=== PATIENT | male | born 2000 | race Caucasian/White ===

== ENCOUNTER 2022-06-11 15:36 | Inpatient (IN) | payer BC ==
[~2022-06-11] VITALS: Ht 180.3 cm; Wt 68.0 kg
[2022-06-11] MEDS ORDERED: PROP20TA7 PO (16:20)
[2022-06-11] MEDS ORDERED: BUSP15TA3 PO (16:20)
[2022-06-11] MEDS ORDERED: LORA2TAB95 PO (16:20)
[2022-06-11] MEDS ORDERED: GABA300C PO (16:20)
[2022-06-11] MEDS ORDERED: LORA-259 PO (16:20)
[2022-06-11] MEDS ORDERED: BUPR8TAB4 SL (16:20)
--- NOTE | 2022-06-11 16:20 | NUR ---
Dr Hagen at the bedside for MSE.
[2022-06-11] MEDS ORDERED: IV NORMAL SALINE 1000 ML BAG IV ONE (16:30)
[2022-06-11 16:53] LABS: HEMATOCRIT 37.6 % (36.7-47.1); MEAN CORPUSCULAR HEMOGLOBIN 30.6 uug (23.8-33.4); MEAN CORPUSCULAR VOLUME 91.7 fL (73.0-96.2); PLATELET COUNT (AUTO) 233 K/uL (152-348)
[2022-06-11 17:07] LABS: CARBON DIOXIDE 28 mmol/L (21-32); CHLORIDE 101 mmol/L (98-107); CREATININE 0.9 mg/dL (0.6-1.3); GLUCOSE 104 mg/dL (74-106); POTASSIUM 4.5 mmol/L (3.5-5.1); UREA NITROGEN, BLOOD 19 mg/dL (7-18)
[2022-06-11 17:16] LABS: ALANINE AMINOTRANSFERASE 102 U/L (16-63); ALKALINE PHOSPHATASE 72 U/L (50-136); ASPARTATE AMINOTRANSFERASE 39 U/L (15-37); BILIRUBIN,DIRECT 0.1 mg/dL (0.0-0.2); BILIRUBIN,TOTAL 0.3 mg/dL (0.2-1.0); TOTAL PROTEIN, SERUM 7.4 g/dL (6.4-8.2)
--- NOTE | 2022-06-11 17:47 | NUR ---
Patient is resting comfortably in bed with eyes closed, NAD noted.
--- NOTE | 2022-06-11 18:06 | NUR ---
Dinner tray provided, pt ate 100%. Denies chest pain, SOB. Pt states he doesn't feel the palpitaions any more.
[2022-06-11] MEDS ORDERED: IV NS 1000 ML 1,000 ML IV ONE (19:00)
--- NOTE | 2022-06-11 19:04 | NUR ---
IV removed. Catheter intact and site benign. Pressure and 4x4 gauze applied to site. No bleeding noted.
[2022-06-11] MEDS ORDERED: LORAZEPAM 0.5 MG TABLET PO ONE (19:30)
[2022-06-11] MEDS ORDERED: BUPRENORPHINE HCL 2 MG TAB.SUBL SL ONE ×2 (19:30→19:44)
[2022-06-11] MEDS ORDERED: LORAZEPAM 0.5 MG TABLET ONE (19:37)
[2022-06-11 19:50] LABS: *BILIRUBIN,URIN NEGATIVE (NEGATIVE); *BLOOD, URINE NEGATIVE (NEGATIVE); *CLARITY,URINE CLEAR (CLEAR); *COLOR,URINE YELLOW (YELLOW); *KETONES,URINE NEGATIVE (NEGATIVE); *UROBILINOGEN,URINE 0.2 E.U./dl (NORMAL); LEUKOCYTE ESTERASE ,URINE NEGATIVE (NEGATIVE); NITRITE, URINE NEGATIVE (NEGATIVE); PH,URINE 5.5 (5.0-8.0); UGLUCOSE NEGATIVE (NEGATIVE)
[2022-06-11 19:57] LABS: *AMPHETAMINE, URINE NEGATIVE (NEGATIVE); *CANNABINOID, URINE POSITIVE (NEGATIVE); *COCCAINE, URINE NEGATIVE (NEGATIVE); *OPIATE, URINE NEGATIVE (NEGATIVE); *PHENCYCLIDINE SCREEN,URINE NEGATIVE (NEGATIVE)
[2022-06-11] MEDS ORDERED: MAGNESIUM HYDROXIDE 30 ML LIQUID UDC PO PRN (23:15)
[2022-06-11] MEDS ORDERED: ACETAMINOPHEN 325 MG TABLET PO PRN (23:15)
[2022-06-11] MEDS ORDERED: ONDANSETRON 4 MG/2 ML VIAL IV PRN (23:15)
--- NOTE | 2022-06-11 23:50 | NUR ---
Endorsed to LORRIE Turcios to RM 321 MS. Pt. in bed with sitter at this time. covid negative results noted.
--- NOTE | 2022-06-12 00:30 | NUR ---
Received patient from ER via gurney, awake alert and oriented x 4, not in resp distress. Sinus tachy on tele HR 137bpm. Admission care rendered, plan of care initiated. Oriented to room, TV, BR and call light. Admitted with private sitter. Call light within easy reach.
[2022-06-12 00:40] VITALS: BP 105/45
[2022-06-12] MEDS: IV NS 1000 ML 1,000 ML IV PRN (01:32)
[2022-06-12] MEDS: LORAZEPAM 0.5 MG TABLET PO PRN ×2 (01:51→23:37)
[2022-06-12 04:00] VITALS: BP 107/36
[2022-06-12] MEDS: PANTOPRAZOLE SODIUM 40 MG TABLET.DR PO SCH (06:06)
[2022-06-12 06:45] LABS: HEMATOCRIT 37.6 % (36.7-47.1); MEAN CORPUSCULAR HEMOGLOBIN 30.5 uug (23.8-33.4); MEAN CORPUSCULAR VOLUME 91.6 fL (73.0-96.2); PLATELET COUNT (AUTO) 226 K/uL (152-348)
[2022-06-12 07:06] LABS: CREATININE 0.8 mg/dL (0.6-1.3); MAGNESIUM 2.1 mg/dL (1.8-2.4); PHOSPHOROUS 5.7 mg/dL (2.5-4.9); POTASSIUM 4.7 mmol/L (3.5-5.1)
[2022-06-12] MEDS ORDERED: BUSPIRONE HCL PO SCH (09:00)
[2022-06-12] MEDS: LORAZEPAM 1 MG TABLET PO SCH (09:00)
[2022-06-12] MEDS: DILTIAZEM HCL CD 120 MG CAP.SR.24H PO SCH (09:00)
[2022-06-12] MEDS: BUPRENORPHINE HCL 2 MG TAB.SUBL SL SCH ×2 (09:00→16:50)
[2022-06-12] MEDS ORDERED: PROPRANOLOL HCL 20 MG TABLET PO SCH (09:00)
[2022-06-12] MEDS: GABAPENTIN 300 MG CAPSULE PO SCH ×3 (09:01→16:50)
[2022-06-12 09:23] LABS: BILIRUBIN,DIRECT 0.1 mg/dL (0.0-0.2); BILIRUBIN,TOTAL 0.2 mg/dL (0.2-1.0)
[2022-06-12 11:59] VITALS: BP 148/79
[2022-06-12] MEDS ORDERED: OXYCODONE/APAP 5-325 MG TABLET PO PRN (14:45)
[2022-06-12] MEDS ORDERED: KETOROLAC TROMETHAMINE 10 MG TABLET PO PRN (15:15)
[2022-06-12 15:28] VITALS: BP 118/64
[2022-06-12] MEDS ORDERED: LORAZEPAM 1 MG TABLET PO SCH (18:00)
--- NOTE | 2022-06-12 20:00 | NUR ---
RECEIVED REPORT FROM AM NURSE MARGUERITE AND CHECKED PT HAD CIGARETTE HOUSEKEEPING AID AND 2 VAPES WHICH PM NURSE CONFISCATED PUT IN DRAWER AT NURSES STATION. INFORMED PT THAT HE WOULD HAVE LEAVE HOSPITAL IF CAUGHT SMOKING IN HIS ROOM. PT VERBALIZED UNDERSTANDING. IN FORMED PT WILL CHECK ON HIM HOURLY.. WILL CONTINUE TO MONITOR FOR SAFETY
--- NOTE | 2022-06-12 20:36 | NUR ---
patient is from drug rehab facility, going to need a sitter, obtained an order from Dr south.
[2022-06-13] VITALS: BP 119/69
[2022-06-13 04:00] VITALS: BP 108/63
[2022-06-13] MEDS: PANTOPRAZOLE SODIUM 40 MG TABLET.DR PO SCH (06:34)
[2022-06-13] MEDS: IV NS 1000 ML 1,000 ML IV PRN (06:35)
[2022-06-13] MEDS: GABAPENTIN 300 MG CAPSULE PO SCH (10:12)
[2022-06-13] MEDS: DILTIAZEM HCL CD 120 MG CAP.SR.24H PO SCH (10:19)
[2022-06-13] MEDS: LORAZEPAM 1 MG TABLET PO SCH (10:20)
[2022-06-13] MEDS: BUPRENORPHINE HCL 2 MG TAB.SUBL SL SCH (10:22)
[2022-06-13 11:09] VITALS: BP 112/61
--- NOTE | 2022-06-13 12:00 | NUR ---
DISCHARGE INSTRUCTIONS GIVEN TO PT .PT INSTRUCTED TO SOW MANAGER CARDIZEM AT HIS PHARMACY..PT STATED HE UNDERSTOOD DISCHARGE INSTRUCTIONS..PT LEFT FOR HOME IN STABLE CONDITION..
[2022-06-13] MEDS ORDERED: DILT120C87 PO (12:12)
== END 2022-06-13 13:10 | disposition home or self-care (01) | DRG 897 ==
LOC: ER 15:36 → TELE3 22:37
PROVIDERS: ADMIT Internal Medicine; ATTEND Internal Medicine
DX: F19.239 Other psychoactive substance dependence with withdrawal, unspecified (principal); R00.0 Tachycardia, unspecified; Z20.822 Contact with and (suspected) exposure to COVID-19; F17.210 Nicotine dependence, cigarettes, uncomplicated; R74.01 Elevation of levels of liver transaminase levels; F41.9 Anxiety disorder, unspecified; F17.290 Nicotine dependence, other tobacco product, uncomplicated; F11.11 Opioid abuse, in remission
CPT/HCPCS: 36415; 71045; 83605; 83690; 83735; 84100; 84443; 84484; 85025; 93005; 93307; A4663; G0378; J7040

== ENCOUNTER 2022-06-27 13:25 | Emergency (ER) | END 2022-06-27 15:06 | disposition home or self-care (01) | DX: R21 Rash and other nonspecific skin eruption (principal) | CPT/HCPCS: 99284; J7512 ==

== ENCOUNTER 2022-10-21 18:34 | Emergency (ER) | payer BC ==
[~2022-10-21 18:34] MED LIST: BUPR8TAB4 SL; BUSP15TA3 PO; DILT120C87 PO; EPIN0.3P3 IM; GABA300C PO; LORA-259 PO; LORA2TAB95 PO; PRED20TA PO
--- NOTE | 2022-10-21 19:15 | NUR ---
Called patient to be traiged but was not present in the waiting room or outside of ER.
--- NOTE | 2022-10-21 19:45 | NUR ---
Patient was called to be triaged but was not present in the waiting room or outside of ER.
--- NOTE | 2022-10-21 20:10 | NUR ---
Patient was called to be triaged but was not present in the waiting room or outside of ER. PATIENT WAS NOT TRIAGED OR SEEN BY ERMD.
== END 2022-10-21 20:10 | disposition left against medical advice (07) ==
LOC: ER 18:34
DX: R11.10 Vomiting, unspecified (principal); Z79.899 Other long term (current) drug therapy; Z53.21 Procedure and treatment not carried out due to patient leaving prior to being seen by health care provider
CPT/HCPCS: A4663